=== PATIENT | male | born 1970 | race Caucasian/White ===

== ENCOUNTER → 2020-04-07 12:30 | Outpatient (CLI) | payer OTHER, SELFPAY ==
--- NOTE | 2020-04-07 | DI.US.S_ITS ---
PROCEDURE: US THYROID INDICATIONS: THYROID NODULE NECK MASS TECHNIQUE: Real-time scanning was performed of the thyroid gland, with image documentation. COMPARISON: None. FINDINGS: Right: Thyroid lobe measures 5.3 x 1.5 x 1.8 cm, and is homogeneous in echotexture. Left: Thyroid lobe measures 4.7 x 1.5 x 1.8 cm, and is homogenous in echotexture. Isthmus: 3 mm thick. Nodule number: 1 Location: Mid left lobe Size: 0.5 x 0.4 x 0.4 cm. Composition: Cystic Echogenicity: Hypoechoic Shape: wider than tall. Margins: Smooth Echogenic foci: Punctate Total points: 5 ACR TI-RADS category: Moderately suspicious IMPRESSION: Subcentimeter left mid lobe cystic lesion, no follow up necessary as below. ACR TI-RADS definitions and recommendations: TI-RADS 1 (benign): 0 points. FNA not needed. TI-RADS 2 (not suspicious): 2 points. FNA not needed. TI-RADS 3 (mildly suspicious): 3 points. * FNA if 2.5 cm or larger, follow up if 1.5 cm or larger (at 1, 3, and 5 years). TI-RADS 4 (moderately suspicious): 4-6 points. * FNA if 1.5 cm or larger, follow up if 1 cm or larger (at 1, 2, 3, and 5 years). TI-RADS 5 (highly suspicious): 7 points or more. * FNA if 1 cm or larger, follow up if 0.5 cm or larger (every year for 5 years). Dictated by: Puneet Dillon M.D. on 04/07/2020 at 15:44 Approved by: Puneet Dillon M.D. on 04/07/2020 at 15:47
--- NOTE | 2020-04-07 | DI.US.S_ITS ---
PROCEDURE: US SOFT TISSUE HEAD AND NECK INDICATIONS: THYROID NODULE NECK MASS TECHNIQUE: Real-time scanning was performed of the neck region of interest, with image documentation. COMPARISON: None. FINDINGS: In the area of right neck palpable abnormality, there is a normal-appearing lymph node measuring 1.0 x 0.4 x 0.7 cm. IMPRESSION: Normal-appearing lymph node seen in the area of palpable abnormality. Dictated by: Puneet Dillon M.D. on 04/07/2020 at 14:19 Approved by: Puneet Dillon M.D. on 04/07/2020 at 14:20
== END ==
PROVIDERS: Family Provider Family Medicine; PCP Student in an Organized Health Care Education/Training Program; Referring Provider Student in an Organized Health Care Education/Training Program; Visit Provider Student in an Organized Health Care Education/Training Program
DX: E04.1 Nontoxic single thyroid nodule (principal); R22.1 Localized swelling, mass and lump, neck
CPT/HCPCS: 76536

== ENCOUNTER → 2022-04-27 12:23 | Outpatient (CLI) | payer OTHER, SELFPAY ==
--- NOTE | 2022-04-27 | DI.RAD.S_ITS ---
PROCEDURE: XR SHOULDER RT MIN 2V INDICATIONS: Fistula, right shoulder/Pain in left finger(s) TECHNIQUE: 3 views of the shoulder were acquired. COMPARISON: None. FINDINGS: Bones: No acute fractures or dislocations. No suspicious bony lesions. Visualized ribs appear intact. Moderate acromioclavicular joint osteoarthrosis. Moderate degenerative changes are seen in the inferior aspect of the glenohumeral joint with marginal osteophyte formation. Soft tissues: No suspicious soft tissue calcifications. IMPRESSION: 1. Moderate glenohumeral and acromioclavicular osteoarthrosis. 2. No acute osseous abnormality. If the symptoms persist, consider cross sectional imaging such as MRI or CT for further assessment. Dictated by: Juan Antonio Peña M.D. on 04/27/2022 at 14:20 Approved by: Juan Antonio Peña M.D. on 04/27/2022 at 14:21
--- NOTE | 2022-04-27 | DI.RAD.S_ITS ---
PROCEDURE: XR HAND LT MIN 3V INDICATIONS: Fistula, right shoulder/Pain in left finger(s) TECHNIQUE: 4 views of the hand(s) acquired. COMPARISON: None. FINDINGS: Bones: No fractures or dislocations. Carpal bones are normally aligned. Joint spaces are fairly well preserved. No bony erosive changes. No suspicious bony lesions. Soft tissues: No suspicious soft tissue calcifications. IMPRESSION: Unremarkable radiographic examination of left hand. Dictated by: Ishan Junior M.D. on 04/27/2022 at 14:14 Approved by: Ishan Junior M.D. on 04/27/2022 at 14:16
== END ==
PROVIDERS: Family Provider Family Medicine; PCP Internal Medicine; Referring Provider Internal Medicine; Visit Provider Internal Medicine
DX: M19.011 Primary osteoarthritis, right shoulder (principal); M79.645 Pain in left finger(s); M25.111 Fistula, right shoulder
CPT/HCPCS: 73030; 73130